=== PATIENT | female | born 1970 | race Caucasian/White ===

== ENCOUNTER 2018-04-15 18:16 | Emergency (ER) | payer MEDICAID ==
[~2018-04-15] VITALS: Ht 154.9 cm; Wt 79.4 kg
[2018-04-15 18:27] VITALS: Ht 154.9 cm; Wt 79.4 kg
[2018-04-15 19:59] VITALS: BP 133/88
== END 2018-04-15 19:59 | disposition home or self-care (01) ==
LOC: ED 18:16
DX: G44.209 Tension-type headache, unspecified, not intractable (principal); F32.9 Major depressive disorder, single episode, unspecified